=== PATIENT | male | born 1960 | race Caucasian/White ===

== ENCOUNTER → 2018-03-10 | Outpatient (CLI) | payer BC | END | disposition home or self-care (01) | LOC: PCVCIMAG 10:39 | DX: I82.4Z2 Acute embolism and thrombosis of unspecified deep veins of left distal lower extremity (principal); I87.1 Compression of vein; I10 Essential (primary) hypertension; E66.9 Obesity, unspecified; Z86.39 Personal history of other endocrine, nutritional and metabolic disease; Z88.0 Allergy status to penicillin | CPT/HCPCS: 93971; 93976 ==

== ENCOUNTER → 2018-04-06 | Outpatient (CLI) | payer BC | END | disposition home or self-care (01) | LOC: PCVCINTER 08:03 | DX: I87.2 Venous insufficiency (chronic) (peripheral) (principal); I82.412 Acute embolism and thrombosis of left femoral vein; Z79.01 Long term (current) use of anticoagulants; Z88.0 Allergy status to penicillin; I87.1 Compression of vein; I10 Essential (primary) hypertension; E66.9 Obesity, unspecified; Z86.39 Personal history of other endocrine, nutritional and metabolic disease | CPT/HCPCS: 36012; 37252; 37253; 75822; 75825; 76937; 93005; C1725; C1757; C1760; C1769; C1885; C1887; C1894 ==

== ENCOUNTER → 2018-07-26 | Outpatient (CLI) | payer BC ==
--- NOTE | 2018-07-26 14:48 | PCVCIMAG ---
EXAM: VENOUS DUPLEX LEFT LOWER EXTREMITY INDICATION: Leg pain and swelling. Prior extensive left leg DVT. FINDINGS: Left leg: No thrombus in the common femoral or main femoral veins. Mild amount of nonocclusive thrombus lower popliteal vein and upper posterior tibial vein. IMPRESSION: Since February 2018 study there is been resolution of extensive thrombus throughout the main femoral vein. There has been considerable improvement with only mild nonocclusive thrombus persisting in the lower left popliteal vein and upper left posterior tibial vein. LOC:[id number]
--- NOTE | 2018-07-26 16:41 | PCVCIMAG ---
APPROVED REPORT Study performed: 07/26/2018 16:13:07 EXAM: Comprehensive 2D, Doppler, and color-flow Echocardiogram Patient Location: Echo lab Room #: 3Status: routine BSA: 2.41 HR: 48 bpmBP: 138/78 mmHg Rhythm: Bradycardia Other Information Study Quality: Adequate Risk Factors: Cardiac Risk Factors: HTN, Hyperlipidemia Indications Abnormal ECG Bradycardia Cardiomyopathy Nonischemic 2006 2D Dimensions IVSd: 9.48 (7-11mm)LVOT Diam: 22.32 (18-24mm) LVDd: 56.68 mm PWd: 8.58 (7-11mm)Ascending Ao: 28.45 (22-36mm) LVDs: 44.90 (25-40mm) Left Atrium: 47.62 (27-40mm) Aortic Root: 26.96 mm LV Single Plane 4CH: 49.63 % LV Single Plane 2CH: 43.22 % Biplane EF: 46.4 % Volumes Left Atrial Volume (Systole) Single Plane 4CH: 60.83 mLSingle Plane 2CH: 69.11 mL Biplane LA Volume: 71.00 mLLA ESV Index: 30.00 mL/m2 Aortic Valve AoV Peak Jeremy.: 1.06 m/s AO Peak Gr.: 4.46 mmHgLVOT Max P.20 mmHg LVOT Max V: 0.89 m/s RC Vmax: 3.31 cm2 Mitral Valve E/A Ratio: 3.2 MV Decel. Time: 171.84 ms MV E Max Jeremy.: 0.70 m/s MV A Jeremy.: 0.22 m/s MV PHT: 49.83 ms IVRT: 124.57 ms TDI E/Lateral E': 14.00E/Medial E': 10.00 Medial E' Jeremy.: 0.07 m/s Lateral E' Jeremy.: 0.05 m/s Pulmonary Valve PV Peak Jeremy.: 0.90 m/sPV Peak Gr.: 3.26 mmHg Pulmonary Vein P Vein S: 0.57 m/sP Vein A: 0.36 m/s P Vein D: 0.45 m/sP Vein A Dur.: 148.8 msec P Vein S/D Ratio: 1.27 Tricuspid Valve TR Peak Jeremy.: 0.68 m/s TR Peak Gr.: 1.86 mmHg TV Vmax: 0.72 m/sPA Pressure: 10.00 mmHg Left Ventricle The left ventricle is normal size. There is normal LV segmental wall motion. There is normal left ventricular wall thickness. Left ventricular ejection fraction is mildly decreased. LVEF is 45-50%. The left ventricular diastolic function is normal. Right Ventricle The right ventricle is normal size. The right ventricular systolic function is normal. Atria The left atrium size is normal. The right atrium size is normal. Aortic Valve The aortic valve is normal in structure. No aortic regurgitation is present. There is no aortic valvular stenosis. Mitral Valve The mitral valve is normal in structure. There is no mitral valve regurgitation noted. No evidence of mitral valve stenosis. Tricuspid Valve The tricuspid valve is normal in structure. Trace tricuspid regurgitation. No pulmonary hypertension. Pulmonic Valve The pulmonary valve is normal in structure. There is no pulmonic valvular regurgitation. Great Vessels The aortic root is normal in size. The ascending aorta is normal in size. IVC is normal in size and collapses >50% with inspiration. Pericardium Mild posterior pericardial effusion. There is no pleural effusion. <Conclusion> The left ventricle is normal size. Left ventricular ejection fraction is mildly decreased. LVEF is 45-50%. The left ventricular diastolic function is normal. The right ventricle is normal size. The left atrium size is normal. The aortic valve is normal in structure. There is no aortic valvular stenosis. There is no mitral valve regurgitation noted. Trace tricuspid regurgitation. No pulmonary hypertension. The aortic root is normal in size. Mild posterior pericardial effusion.
== END | disposition home or self-care (01) ==
LOC: PCVCIMAG 12:54
PROVIDERS: ATTEND Internal Medicine Cardiovascular Disease
DX: I82.402 Acute embolism and thrombosis of unspecified deep veins of left lower extremity (principal); R60.9 Edema, unspecified; I10 Essential (primary) hypertension; G47.33 Obstructive sleep apnea (adult) (pediatric); R94.31 Abnormal electrocardiogram [ECG] [EKG]; R00.1 Bradycardia, unspecified; I42.9 Cardiomyopathy, unspecified; E78.5 Hyperlipidemia, unspecified
CPT/HCPCS: 93306; 93971